=== PATIENT | male | born 1955 | race African-American/Black ===

== ENCOUNTER 2022-09-13 15:09 | Emergency (ER) | payer MEDICARE ==
[~2022-09-13] VITALS: Ht 180.3 cm; Wt 107.0 kg
[2022-09-13] MEDS ORDERED: HYDROCODONE/ACETAMINOPHEN 5/325MG TABLET PO ONE (16:30)
[2022-09-13] MEDS ORDERED: IBUPROFEN 400MG TABLET PO ONE (16:30)
[2022-09-13 17:42] VITALS: BP 172/98
[2022-09-13] MEDS ORDERED: IBUP-2028 MT (17:49)
== END 2022-09-13 18:02 | disposition home or self-care (01) ==
LOC: ER 15:33
DX: S93.601A Unspecified sprain of right foot, initial encounter (principal); S93.401A Sprain of unspecified ligament of right ankle, initial encounter; W18.39XA Other fall on same level, initial encounter; Y93.89 Activity, other specified; Y92.89 Other specified places as the place of occurrence of the external cause; Y99.8 Other external cause status
CPT/HCPCS: 73502; 73610; 73630; 99284